=== PATIENT | male | born 1960 | race Caucasian/White ===

== ENCOUNTER → 2018-06-18 06:05 | Outpatient (CLI) | payer BC, SELFPAY ==
[2018-06-16 11:11] VITALS: BMI 30.8
--- NOTE | 2018-06-18 06:09 | ECHOCS_ITS ---
Reason For Study: HTN Procedure This was a 2D Doppler, Color Flow transthoracic echocardiogram. Exam performed in department. Left Ventricle Normal LV size. Left ventricular systolic function is normal. The estimated ejection fraction is 55 %. Stage 1 diastolic dysfunction. No regional wall motion abnormalities noted. Right Ventricle Normal RV size. Normal systolic function. Atria Normal left atrium. Normal right atrium. Mitral Valve Normal mitral valve. Mild (1+) eccentric mitral valve insufficiency. Tricuspid Valve Normal tricuspid valve. Mild tricuspid valve insufficiency. Aortic Valve Normal aortic valve. Trisinus/trileaflet aortic valve. Pulmonic Valve Normal pulmonic valve. Great Vessels Normal aortic root. The pulmonary artery is normal size. Normal inferior vena cava. Pericardium/Pleural No pericardial effusion. Medication Definity0.3ml given slow IV push to enhance endocardial definition. MMode/2D Measurements & Calculations LVIDd: 4.7 cm IVSd: 1.1 cm Ao root diam: 3.2 cm LVIDs: 3.1 cm LVPWd: 0.86 cm RVDd: 3.7 cm FS: 34.1 % LAV(MOD-bp): 48.0 ml LVAd ap4: 30.8 cm2 SV(MOD-sp4): 53.2 ml LAV(MOD-bp) Indexed: 22.8 ml/m2 EDV(MOD-sp4): 96.4 ml LAV(MOD-sp2): 43.9 ml EDV(sp4-el): 98.6 ml LAV(MOD-sp4): 40.5 ml LVAs ap4: 18.3 cm2 ESV(MOD-sp4): 43.2 ml ESV(sp4-el): 41.8 ml EF(MOD-sp4): 55.2 % EF(sp4-el): 57.6 % SV(sp4-el): 56.7 ml LA A4 area: 16.7 cm2 LA dimension(2D): 3.6 cm RA A4 area: 10.2 cm2 Doppler Measurements & Calculations MV E max alexis: 54.0 cm/sec Lat Peak E' Alexis: 14.2 cm/sec Med Peak E' Alexis: 6.8 cm/sec MV A max alexis: 67.4 cm/sec E/E' lat: 3.8 E/E' med: 8.0 MV E/A: 0.80 Ao V2 max: 103.3 cm/sec LV V1 max: 88.7 cm/sec PA V2 max: 83.6 cm/sec Ao max P.3 mmHg LV V1 max P.1 mmHg Ao V2 mean: 82.8 cm/sec Ao mean P.9 mmHg Ao V2 VTI: 24.3 cm TR max alexis: 235.6 cm/sec TR max P.2 mmHg Interpretation Summary Normal LV size. Left ventricular systolic function is normal. The estimated ejection fraction is 55 %. Stage 1 diastolic dysfunction. Mild (1+) eccentric mitral valve insufficiency. Contrast injection was performed. Ordering Physician: Orlando Carr Referring Physician: Orlando Carr Performed By: Ena Ayala, MILLER, RVT
--- NOTE | 2018-06-18 08:48 | CT_ITS ---
STUDY: CT CHEST WITHOUT CONTRAST REASON FOR EXAM: Male, 57 years old. Calcium scoring examination. This is an over read for the lungs. RADIATION DOSAGE (If Supplied By Facility): CTDIvol = ( 12.19 ) mGy, DLP = ( 195.04 ) mGycm TECHNIQUE: Transaxial imaging was performed without the administration of intravenous contrast material. Individualized dose optimization techniques were used for this CT. COMPARISON: None. FINDINGS: The lungs are normal. There is no demonstrated pleural abnormality. There are calcifications of the coronary arteries. There are multiple small lymph nodes within the mediastinum, which are normal in size and morphology most compatible with reactive lymph hyperplasia. Normal hilar regions. Normal unenhanced pulmonary arteries. Normal aorta arch and descending thoracic aorta. Normal osseous structures. Small hiatal hernia. CT/Limited Chest CT w/CCTA IMPRESSION: No acute abnormalities seen. Electronically Signed: Ilir Holloway MD at 14:22 EST Tel [phone], Service support ,
--- NOTE | 2018-06-18 10:30 | STRESSREP_ITS ---
Stress Test Report Exercise myocardial perfusion stress test. 57-year-old man with a history of hypertension and cardiac risk factors. Stress protocol: Resting EKG demonstrates sinus bradycardia with a rate of 59 bpm normal intervals are noted resting blood pressure 138/88 mmHg. The patient exercised according to the regular Jeremiah protocol for total duration of 9 minutes completing stage III of the Jeremiah protocol. The maximum heart rate attained was 122 bpm which was 74% of maximum predicted heart rate the maximum workload was 10.1 metabolic equivalents. The patient maintained sinus rhythm throughout the recording. At rest there were no ST or T wave changes noted suggest any evidence of ischemia at peak exercise upsloping ST changes only were noted with normally the criteria for ischemia. No clinical angina was noted the test was terminated due to leg fatigue. The resting blood pressure was 138/88 with a peak blood pressure 188/110. Myocardial perfusion protocol. 14.3 mCi of technetium 99m sestamibi was injected at rest. The patient exercised according to regular Jeremiah protocol for 9 minutes attaining 74% of maximum predicted heart rate and a workload of 10.1 metabolic equivalents. At peak exercise 44.4 mCi of technetium 99m sestamibi was injected stress images were obtained stress and rest images were reconstructed and compared in the short axis vertical long and horizontal long axis. Gated images were also obtained Perfusion SPECT analysis: Review of the stress images demonstrate normal uptake of tracer noted in all ar eas of the myocardium the resting images similarly demonstrate normal uptake of tracer noted in all areas of the myocardium. No areas of reversibility are noted suggest ischemia and no previous infarct is noted. Gated SPECT analysis: The gated ejection fraction is noted to be 62%. Conclusion: Normal exercise myocardial perfusion stress test at a high workload. No clinical angina noted. No arrhythmias noted. No angina noted. Patient however did not attaining 85% of maximum predicted heart rate due to beta-jessica use.
--- NOTE | 2018-06-18 10:44 | CA.SCORE ---
Calcium Scoring Date of Study:: 06/18/18 Coronary Calcium Scoring: Coronary calcium score. 57-year-old man with a history of cardiac risk factors. High-resolution computed tomographic imaging of the chest was performed on 06/18/2018 with particular attention paid to the coronary arteries. Images from the examination were analyzed for the presence and extent of coronary artery calcification using the coronary calcium quantification software. The patient tolerated the procedure well and there were no complications. The results of the coronary calcification analysis are provided below. Left main coronary artery score 0 Left anterior descending artery score 165 at bifurcation with diagonal vessel. Left circumflex artery score 0. Right coronary artery score of 0. Total Agagston score 165. The above is suggestive of a 66 percentile ranking for age. It indicates moderate plaque burden and likely moderate nonobstructive coronary artery disease in the left anterior descending artery and diagonal bifurcation. Conclusion: Moderate nonobstructive coronary artery disease plaque identified.
== END ==
PROVIDERS: Referring Provider Internal Medicine Cardiovascular Disease; Visit Provider Internal Medicine Cardiovascular Disease
DX: I25.10 Atherosclerotic heart disease of native coronary artery without angina pectoris (principal); Z82.49 Family history of ischemic heart disease and other diseases of the circulatory system; I10 Essential (primary) hypertension
CPT/HCPCS: 75571; 76380; 78452; 93017; 93306; A9500; Q9957; A4216; C8929

== ENCOUNTER → 2019-07-21 10:06 | Outpatient (CLI) | payer BC, SELFPAY ==
[2019-07-21 08:55] VITALS: BMI 32.1
[2019-07-21 12:50] LABS: AST(SGOT) 37 U/L (15-37); Alanine Aminotransfer ALT/SGPT 68 U/L (16-61); Albumin, Serum 4.1 g/dL (3.2-5.0); Alkaline Phosphatase 74 U/L (45-117); Anion Gap 5 (5-15); BUN 9 mg/dL (7-18); BUN/Creat Ratio 7.9 RATIO (10-20); Calcium,Total 8.7 mg/dL (8.5-10.1); Chloride 103 mmol/L (98-107); Cholesterol 217 mg/dL (200); Creatinine, Serum 1.14 mg/dL (0.70-1.30); EST Glomerular Filtration Rate 70 mL/min (>60); Est Glom Filt Rate - Afr Amer 85 mL/min (>60); Globulin 3.3 g/dL (2.2-4.2); Glucose 78 mg/dL (74-106); High Density Lipoprotein 50 mg/dL; Potassium 4.5 mmol/L (3.5-5.1); Protein, Total 7.4 g/dL (6.4-8.2); Sodium Level 137 mmol/L (136-145); Triglycerides 224 mg/dL; Very Low Density Lipoprotein 45 mg/dL (5-40)
[2019-07-21 13:00] LABS: Hemoglobin A1c 5.6 % (4.2-6.3)
== END ==
PROVIDERS: Referring Provider Internal Medicine Cardiovascular Disease; Visit Provider Internal Medicine Cardiovascular Disease
DX: I10 Essential (primary) hypertension (principal); Z82.49 Family history of ischemic heart disease and other diseases of the circulatory system; Z83.3 Family history of diabetes mellitus
CPT/HCPCS: 36415; 80048; 80061; 80076; 83036

== ENCOUNTER → 2020-01-03 15:55 | Outpatient (CLI) | payer BC, SELFPAY ==
[2019-07-21 08:55] VITALS: BMI 32.1
[2020-01-04 07:32] LABS: SARS-COV-2 TOTAL ABS Nonreactive (Nonreactive)
== END ==
PROVIDERS: Visit Provider Internal Medicine Cardiovascular Disease
DX: I10 Essential (primary) hypertension (principal); Z82.49 Family history of ischemic heart disease and other diseases of the circulatory system
CPT/HCPCS: 86769; 87635; G2023; U0003

== ENCOUNTER → 2020-01-10 09:43 | Outpatient (CLI) | payer BC, SELFPAY ==
[2020-01-10 07:55] VITALS: BMI 33.4
[2020-01-10 11:20] LABS: BNP,B-Type NATRIURETIC PEPTIDE 9.8 pg/mL (0-100)
[2020-01-10 11:23] LABS: AST(SGOT) 38 U/L (15-37); Alanine Aminotransfer ALT/SGPT 104 U/L (16-61); Alkaline Phosphatase 83 U/L (45-117); Anion Gap 8 (5-15); BUN 19 mg/dL (7-18); BUN/Creat Ratio 13.9 RATIO (10-20); Bilirubin, Direct 0.17 mg/dL (0.00-0.30); Chloride 102 mmol/L (98-107); Cholesterol 226 mg/dL (200); Creatinine, Serum 1.37 mg/dL (0.70-1.30); EST Glomerular Filtration Rate 57 mL/min (>60); Est Glom Filt Rate - Afr Amer 69 mL/min (>60); Globulin 3.7 g/dL (2.2-4.2); Glucose 106 mg/dL (74-106); High Density Lipoprotein 49 mg/dL; Magnesium 2.4 mg/dL (1.6-2.6); Potassium 3.8 mmol/L (3.5-5.1); Protein, Total 7.7 g/dL (6.4-8.2); Sodium Level 138 mmol/L (136-145); Triglycerides 87 mg/dL; Very Low Density Lipoprotein 17 mg/dL (5-40)
== END ==
PROVIDERS: Referring Provider Internal Medicine Cardiovascular Disease; Visit Provider Internal Medicine Cardiovascular Disease
DX: I10 Essential (primary) hypertension (principal); Z82.49 Family history of ischemic heart disease and other diseases of the circulatory system; E78.00 Pure hypercholesterolemia, unspecified; R60.0 Localized edema
CPT/HCPCS: 36415; 80048; 80061; 80076; 83735; 83880

== ENCOUNTER → 2020-01-13 15:04 | Outpatient (CLI) | payer BC, SELFPAY ==
[2020-01-10 07:55] VITALS: BMI 33.4
--- NOTE | 2020-01-13 15:06 | ECHOCS_ITS ---
Reason For Study: EDEMA Procedure This was a 2D Doppler, Color Flow transthoracic echocardiogram. The study was technically difficult. Contrast injection was performed. Exam performed in department. Left Ventricle Normal LV size. Left ventricular systolic function is normal. The estimated ejection fraction is 60 %. Stage 1 diastolic dysfunction. No regional wall motion abnormalities noted. Right Ventricle Normal RV size. Normal systolic function. Atria Normal left atrium. Normal right atrium. Mitral Valve Normal mitral valve. Tricuspid Valve Normal tricuspid valve. Mild (1+) tricuspid valve insufficiency. Pulmonary artery systolic pressure is 26 mmHg. Aortic Valve The aortic valve is not well visualized. Pulmonic Valve Normal pulmonic valve. Great Vessels Normal aortic root. The pulmonary artery is normal size. Normal inferior vena cava. Pericardium/Pleural No pericardial effusion. Medication 22 gauge I.V. with prn adaptor inserted into right arm. Diluted definity 3.0ml given slow IV push to enhance endocardial definition. MMode/2D Measurements & Calculations LVIDd: 4.1 cm IVSd: 1.00 cm Ao root diam: 3.4 cm LVIDs: 2.8 cm LVPWd: 1.1 cm RVDd: 2.8 cm FS: 32.2 % LAV(MOD-bp): 31.8 ml EDV(MOD-sp4): 109.8 ml SV(MOD-sp4): 73.4 ml LAV(MOD-bp) Indexed: 14.3 ml/m2 ESV(MOD-sp4): 36.4 ml LAV(MOD-sp2): 31.4 ml EF(MOD-sp4): 66.8 % LAV(MOD-sp4): 30.4 ml LA dimension(2D): 3.5 cm LA A4 area: 13.2 cm2 RA A4 area: 10.7 cm2 Time Measurements MV dec time: 0.33 sec Doppler Measurements & Calculations MV E max alexis: 62.4 cm/sec Lat Peak E' Alexis: 10.2 cm/sec Med Peak E' Alexis: 9.1 cm/sec MV A max alexis: 86.5 cm/sec E/E' lat: 6.1 E/E' med: 6.8 MV E/A: 0.72 Ao V2 max: 126.9 cm/sec LV V1 max: 109.9 cm/sec PA V2 max: 102.9 cm/sec Ao max P.4 mmHg LV V1 max P.8 mmHg PI end-d alexis: 91.7 cm/sec TR max alexis: 236.9 cm/sec TR max P.5 mmHg Interpretation Summary Normal LV size. Left ventricular systolic function is normal. The estimated ejection fraction is 60 %. Stage 1 diastolic dysfunction. Contrast injection was performed. Ordering Physician: Orlando Carr Referring Physician: Orlando Carr Performed By: Sakshi Aguilar, RDCS, RVT
== END ==
PROVIDERS: Referring Provider Internal Medicine Cardiovascular Disease; Visit Provider Internal Medicine Cardiovascular Disease
DX: I10 Essential (primary) hypertension (principal); Z82.49 Family history of ischemic heart disease and other diseases of the circulatory system
CPT/HCPCS: 93306; Q9957; A4216; C8929

== ENCOUNTER → 2022-03-10 | Outpatient (CLI) | payer BC, SELFPAY ==
--- NOTE | 2022-03-10 07:27 | ECHOCS_ITS ---
Reason For Study: CAD/ASHD Procedure This was a 2D Doppler, Color Flow transthoracic echocardiogram. Contrast injection was performed. Exam performed in department. Left Ventricle Normal LV size. Left ventricular systolic function is normal. The estimated ejection fraction is 60 %. Stage 1 diastolic dysfunction. No regional wall motion abnormalities noted. Right Ventricle Normal RV size. Normal systolic function. Atria Normal left atrium. Normal right atrium. Mitral Valve Normal mitral valve. Tricuspid Valve Normal tricuspid valve. Mild tricuspid valve insufficiency. Pulmonary artery systolic pressure is 23 mmHg. Aortic Valve Normal aortic valve. Trisinus/trileaflet aortic valve. Pulmonic Valve Normal pulmonic valve. Great Vessels Normal aortic root. The pulmonary artery is normal size. Normal inferior vena cava. Pericardium/Pleural No pericardial effusion. Medication Diluted definity 2ml given slow IV push to enhance endocardial definition. MMode/2D Measurements & Calculations LVIDd: 4.9 cm IVSd: 0.76 cm Ao root diam: 3.0 cm LVIDs: 3.0 cm LVPWd: 0.76 cm RVDd: 2.7 cm FS: 38.6 % LAV(MOD-bp): 28.5 ml LVAd ap4: 25.4 cm2 SV(MOD-sp4): 47.7 ml LAV(MOD-bp) Indexed: 13.3 ml/m2 LVLd ap4: 7.1 cm LAV(MOD-sp2): 30.4 ml EDV(MOD-sp4): 76.4 ml LAV(MOD-sp4): 23.0 ml EDV(sp4-el): 77.0 ml LVAs ap4: 14.2 cm2 LVLs ap4: 5.9 cm ESV(MOD-sp4): 28.7 ml ESV(sp4-el): 28.9 ml EF(MOD-sp4): 62.4 % EF(sp4-el): 62.5 % SV(sp4-el): 48.1 ml LA A4 area: 11.5 cm2 LA dimension(2D): 3.2 cm RA A4 area: 8.8 cm2 Doppler Measurements & Calculations MV E max alexis: 66.8 cm/sec Lat Peak E' Alexis: 10.6 cm/sec Med Peak E' Alexis: 5.7 cm/sec MV A max alexis: 73.1 cm/sec E/E' lat: 6.3 E/E' med: 11.7 MV E/A: 0.91 Ao V2 max: 115.4 cm/sec LV V1 max: 104.7 cm/sec PA V2 max: 115.2 cm/sec Ao max P.3 mmHg LV V1 max P.4 mmHg Ao V2 mean: 79.4 cm/sec Ao mean P.7 mmHg Ao V2 VTI: 19.1 cm TR max alexis: 222.4 cm/sec TR max P.8 mmHg ECHO/Echo Complete W/ Contrast Interpretation Summary Normal LV size. Left ventricular systolic function is normal. The estimated ejection fraction is 60 %. Stage 1 diastolic dysfunction. Pulmonary artery systolic pressure is 23 mmHg. Contrast injection was performed. Ordering Physician: Orlando Carr Referring Physician: Orlando Carr Performed By: Ena Ayala, RDSIRISHA, RVT
--- NOTE | 2022-03-10 13:00 | STRESSREP_ITS ---
Stress Test Report Exercise myocardial perfusion stress test. 61-year-old man with a history of coronary artery disease. Stress protocol: Resting EKG demonstrates normal sinus rhythm with a rate of 71 bpm normal intervals are noted resting blood pressure is 122/80 mmHg. The patient exercised according to the regular Jeremiah protocol for total duration of 9 min utes. Patient completed stage III of the Jeremiah protocol. The maximum heart rate attained was 155 bpm which was 96% of max impacted heart rate the maximum workload was 10.4 metabolic equivalents. At rest there were no ST or T wave changes noted to suggest ischemia and at peak exercise upsloping ST changes were noted which did not meet the criteria for ischemia. The test was terminated due to the target heart rate being achieved. No clinical angina was noted. The peak blood pressure was 160/70 mmHg. Myocardial perfusion protocol. 15.0 mCi of technetium 99m sestamibi was injected at rest. The patient exercised according to regular Jeremiah protocol for 9 minutes and at peak exercise 45.0 mCi of technetium 99m sestamibi was injected stress images were obtained stress and rest images were reconstructed in comparing the short axis vertical long and horizontal long axis. Gated images were also obtained. Perfusion SPECT analysis: Review of the stress images demonstrate normal uptake of tracer noted in all areas of the myocardium. The resting images similarly demonstrate normal uptake of tracer noted in all areas of the myocardium. No areas of reversibility are noted suggest ischemia and no previous infarct is noted. Gated SPECT analysis: The gated ejection fraction is noted to be 75%. Conclusion: Normal exercise myocardial perfusion stress test at a high workload. Preserved ejection fraction. Good functional capacity.
== END | disposition home or self-care (01) ==
PROVIDERS: Referring Provider Internal Medicine Cardiovascular Disease; Visit Provider Internal Medicine Cardiovascular Disease
DX: I25.10 Atherosclerotic heart disease of native coronary artery without angina pectoris (principal); F90.9 Attention-deficit hyperactivity disorder, unspecified type; E78.01 Familial hypercholesterolemia; I10 Essential (primary) hypertension; E78.5 Hyperlipidemia, unspecified; Z82.49 Family history of ischemic heart disease and other diseases of the circulatory system
CPT/HCPCS: 78452; 93017; 93306; A9500; Q9957; A4216; C8929

== ENCOUNTER → 2025-03-07 | Outpatient (CLI) | payer BC, SELFPAY ==
[2025-03-07 09:57] LABS: Hematocrit 46.6 % (40-54); Hemoglobin 16.5 g/dL (13.0-16.5); Immature Granulocytes Count 0.040 X10^3/uL (0.0-0.0); Mean Corp Hgb Conc 35.4 g/dL (32-36); Mean Corpuscular Volume 95.7 fL (80-94); Mean Platelet Vol. 9.5 fl (6.2-12.0); NRBC Flagged by Analyzer 0 % (0-5); Platelet Count 369 K/mm3 (150-450); RBC Distribution Width CV 14.3 % (11.6-14.6); RBC Distribution Width SD 49.9 fl (35.1-43.9); Red Blood Count 4.87 M/mm3 (4.6-6.2); White Blood Count 8.3 K/mm3 (4.4-11.0)
[2025-03-07 11:10] LABS: Cholesterol 188 mg/dL (<=200); Low Density Lipoprotein Calc. 98 mg/dL; Triglycerides 72 mg/dL; Very Low Density Lipoprotein 14 mg/dL (5-40); cholesterol:hdl ratio screen 2.49
[2025-03-07 11:22] LABS: AST(SGOT) 66 U/L (<=37); Alanine Aminotransfer ALT/SGPT 135 U/L (<=46); Albumin, Serum 4.5 g/dL (3.4-4.8); Alkaline Phosphatase 79 U/L (40-129); Anion Gap 15 (5-15); BUN 13 mg/dL (4-19); BUN/Creat Ratio 8.4 RATIO (10-20); Bilirubin, Direct 0.27 mg/dL (0.00-0.30); Calcium,Total 10.0 mg/dL (7.6-11.0); Carbon Dioxide 25.7 mmol/L (21.0-32.0); Chloride 94 mmol/L (98-108); Globulin 3.4 g/dL (2.2-4.2); Glucose 77 mg/dL (70-99); Potassium 3.3 mmol/L (3.3-5.1)
== END | disposition home or self-care (01) ==
PROVIDERS: Referring Provider Nurse Practitioner Gerontology; Visit Provider Nurse Practitioner Gerontology
DX: E78.5 Hyperlipidemia, unspecified (principal); I10 Essential (primary) hypertension
CPT/HCPCS: 36415; 80048; 80061; 80076; 84443; 85025